=== PATIENT | female | born 1965 | race Caucasian/White ===

== ENCOUNTER 2018-11-29 18:40 | Emergency (ER) | payer MEDICAID, OTHER ==
[~2018-11-29] VITALS: Ht 167.6 cm; Wt 55.0 kg
--- NOTE | 2018-11-29 23:26 | NUR ---
Shmuel Stone, brother [phone] yessenia Monroe [phone] Addendum: 11/30/18 at 0856 by CALLIE PT CODE WORK IS LIZ, CAN GIVE INFORMATION TO YESSENIA FIORE
[2018-11-29 23:34] LABS: BASOPHILS # (AUTO) 0.1 X10'3 (0-0.2); BASOPHILS % (AUTO) 1.3 % (0-1); EOSINOPHILS # (AUTO) 0.3 X10'3 (0-0.9); EOSINOPHILS % (AUTO) 5.1 % (0-6); HEMATOCRIT 40.5 % (35.0-45.0); HEMOGLOBIN 13.3 g/dl (12.0-16.0); LYMPHOCYTES # (AUTO) 1.7 X10'3 (1.1-4.8); LYMPHOCYTES % (AUTO) 33.9 % (21-51); MEAN CORPUSCULAR HEMOGLOBIN 30.1 PG (27.0-31.0); MEAN CORPUSCULAR HGB CONC 32.8 g/dL (33.0-36.5); MEAN CORPUSCULAR VOLUME 91.8 FL (78-98); MEAN PLATELET VOLUME 7.8 FL (7.4-10.4); MONOCYTES # (AUTO) 0.5 X10'3 (0-0.9); MONOCYTES % (AUTO) 8.8 % (2-12); NEUTROPHILS # (AUTO) 2.6 X10'3 (1.8-7.7); NEUTROPHILS % (AUTO) 50.9 % (42-75); PLATELET COUNT 248 X10'3 (140-440); RED BLOOD COUNT 4.41 X10'6 (4.20-5.60); RED CELL DISTRIBUTION WIDTH 12.7 % (11.5-14.5); WHITE BLOOD COUNT 5.2 X10'3 (4.5-11.0)
[2018-11-29 23:41] LABS: ALANINE AMINOTRANSFERASE 20 U/L (12-78); ALBUMIN 3.7 G/DL (3.4-5.0); ALBUMIN/GLOBULIN RATIO 1.3 (1.1-1.5); ALKALINE PHOSPHATASE 73 IU/L (46-116); ANION GAP 7 (8-16); ASPARTATE AMINO TRANSFERASE 12 U/L (10-37); BILIRUBIN,TOTAL 0.3 MG/DL (0.1-1.0); BLOOD UREA NITROGEN 12 MG/DL (7-18); BUN/CREATININE RATIO 13.8 (6.6-38.0); CALCIUM 9.1 MG/DL (8.5-10.1); CHLORIDE 106 MMOL/L (99-107); CREATININE 0.87 MG/DL (0.40-0.90); ETHANOL < 0.010 GM/DL (0.0-0.010); GLUCOSE 110 MG/DL (70-104); POTASSIUM 3.7 MMOL/L (3.5-5.1); SODIUM 143 MMOL/L (135-145); TOTAL PROTEIN 6.6 G/DL (6.4-8.2); eGFR 68 ML/MIN
--- NOTE | 2018-11-29 23:47 | NUR ---
SON WOULD LIKE TO BE CONTACTED FOR [facility] CONSULT
--- NOTE | 2018-11-30 | NUR ---
REPORT CALLED TO [facility] MEDLEY IN SBAR FORMAT
[2018-11-30 00:02] LABS: URINE HCG NEGATIVE (NEG)
--- NOTE | 2018-11-30 00:06 | NUR ---
MOVED OVER FROM MAIN ER, PT COOPERATIVE, AND TUCKED INTO BED FOR THE NIGHT.
[2018-11-30 00:15] LABS: URINE AMPHETAMINE SCREEN NEGATIVE (Neg); URINE BARBITUATE SCREEN NEGATIVE (Neg); URINE BENZODIAZEPINES SCREEN NEGATIVE (Neg); URINE CANNABINOID SCREEN NEGATIVE (Neg); URINE COCAINE SCREEN NEGATIVE (Neg); URINE METHADONE SCREEN NEGATIVE (Neg); URINE OPIATE SCREEN NEGATIVE (Neg); URINE PHENCYCLIDINE SCREEN NEGATIVE (Neg)
--- NOTE | 2018-11-30 06:09 | NUR ---
PT UP AT DESK ASKING TO GO OUTSIDE TO SMOKE. TOLD SEVERAL TIMES THAT SHE COULD NOT AND THAT A NICOTINE PATCH COULD BE ORDERED FOR HER.
--- NOTE | 2018-11-30 07:04 | NUR ---
TELEPSYCH ORDERED BY DR IRBY AND INITIATED.
--- NOTE | 2018-11-30 08:34 | NUR ---
DR CARDOZA FROM [facility] [place] STATUS UPDATE
--- NOTE | 2018-11-30 08:45 | NUR ---
PT SPEAKING WITH TELEPSYCH DOCTOR AT THIS TIME. PT HAS 2 FAMILY MEMBERS AT BEDSIDE.
--- NOTE | 2018-11-30 09:21 | NUR ---
TELEPSYCH COMPLETED WITH DR LEE. RECOMMENDED PLACEMENT FOR PSYCOSIS, GRAVELY DISABLED AND DANGER TO SELF. REPORT TO FOLLOW WITH MEDICATION RECOMMENDATIONS OF TOM MAN AND RC.
[2018-11-30] MEDS ORDERED: nicotine 21mg patch - 24 hr TD ONE (09:35)
[2018-11-30] MEDS ORDERED: LORazepam 2 mg/ml vial IM PRN (09:35)
[2018-11-30] MEDS ORDERED: LORazepam 1 MG tablet PO PRN (09:35)
[2018-11-30] MEDS ORDERED: risperiDONE 2mg tablet PO SCH ×2 (09:45→20:00)
--- NOTE | 2018-11-30 09:45 | NUR ---
MEDS RECOMMENDED BY DR LEE, SOC REVIEWED BY DR IRBY AND ORDERED. PT REQUESTING A NICOTINE PATCH, ORDER OBTAINED FAMILY AT BEDSIDE.
[2018-11-30] MEDS ORDERED: UNABLE TO OBTAIN (10:00)
--- NOTE | 2018-11-30 10:00 | NUR ---
FAMILY HAS LEFT. PT SLEEPING COMFORTABLY. ORDERED MEDICATIONS WILL BE STARTED WHEN PT WAKES UP.
--- NOTE | 2018-11-30 11:26 | NUR ---
PT SLEEPING COMFORTABLY, NO S/S OF DISTRESS NOTED.
[2018-11-30] MEDS: ziprasidone 20mg capsule PO SCH ×2 (12:10→21:31)
[2018-11-30] MEDS: risperiDONE 0.5mg tablet PO SCH ×2 (12:10→21:32)
--- NOTE | 2018-11-30 12:16 | NUR ---
PT IS AWAKE AND GIVEN NEW MEDICATIONS ORDERED.
--- NOTE | 2018-11-30 12:35 | NUR ---
PT MOVED TO OF[facility]
--- NOTE | 2018-11-30 13:07 | NUR ---
PT EVALUATED BY MEGAN DONOVAN. PT FAILED THE DEVALOPMENTAL TESTING, DR IRBY CONSULTED AND UA AND HEAD CT ORDERED.
[2018-11-30 13:56] LABS: CLARITY,URINE CLEAR (Clear); COLOR,URINE STRAW (Yellow); GLUCOSE, URINE NEGATIVE (Neg); KETONES,URINE NEGATIVE (Neg); LEUKOCYTE ESTERASE ,URINE NEGATIVE (Neg); NITRITES, URINE NEGATIVE (Neg); OCCULT BLOOD,URINE TRACE-INTACT (Neg); PROTEIN,URINE NEGATIVE (Neg); UROBILINOGEN,URINE 0.2 E.U/dL (0.2-1.0)
[2018-11-30 14:00] LABS: UA COLLECTION TYPE CLN CATCH MIDSTREAM
[2018-11-30 14:04] LABS: BACTERIA,URINE 2+ /HPF (Neg); SQUAMOUS EPITHELIAL CELL,UR FEW /LPF (FEW)
[2018-11-30 14:05] LABS: RBC,URINE 0-2 /HPF (0-2); WBC,URINE 0-4 /HPF (0-4)
--- NOTE | 2018-11-30 14:05 | NUR ---
URINE SENT TO LAB, PT WENT TO CT WITH RN AND SECURITY EXCORT WITHOUT INCIDENT
--- NOTE | 2018-11-30 15:23 | NUR ---
PT EVALUATED BY [facility]. VENUS PLACED PT ON A 5150 HOLD.
--- NOTE | 2018-11-30 17:07 | NUR ---
PT IS SLEEPING COMFORTABLY. PT'S SON CAME BY, UPDATE GIVEN, REVIEWED LAB AND CT RESULTS WITH SON. SON LEFT, NOT WANTING TO WAKE PT UP
--- NOTE | 2018-11-30 17:38 | NUR ---
URINE LAB RESULTS FAXED TO [facility] OFFICE
--- NOTE | 2018-11-30 18:56 | NUR ---
Patient sitting at edge of bed eating dinner. No distress observed. Continue to monitor.
--- NOTE | 2018-11-30 20:11 | NUR ---
Patient sleeping on right side. No distress observed. continue to monitor.
--- NOTE | 2018-11-30 22:13 | NUR ---
Patient's blood being drawn for TSH, possible admit to [facility]. No distress observed.
--- NOTE | 2018-11-30 23:41 | NUR ---
RN faxed [facility] office and [facility] results of TSH blood work for possible admission to [facility].
[2018-12-01] MEDS ORDERED: ibuprofen tablet 400 MG TABLET PO ONE (05:30)
--- NOTE | 2018-12-01 06:30 | NUR ---
Pt appears to be sleeping; RR WNL's.
[2018-12-01] MEDS: ziprasidone 20mg capsule PO SCH ×2 (07:59→19:11)
[2018-12-01] MEDS: risperiDONE 0.5mg tablet PO SCH ×2 (08:00→19:11)
--- NOTE | 2018-12-01 08:25 | NUR ---
Pt is up eating. She has had a sandwich, chips, juice some eggs and is now asking for more food. Ordered regular diet and waiting for a regular tray to be delivered. Pt is calm, cooperative and following directions. Loose associations and illogical thought process.
--- NOTE | 2018-12-01 10:16 | NUR ---
Pt has been sleeping since after breakfast; RR WNL's.
--- NOTE | 2018-12-01 11:38 | NUR ---
Pt is sleeping; RR WNL's.
--- NOTE | 2018-12-01 12:05 | NUR ---
Patient's son Bryon is here visiting. He is his mother's POA. His phone number is [phone].
--- NOTE | 2018-12-01 13:31 | NUR ---
Pt son's was here visiting this morning. Pt up for meals and then goes back to sleep. RR WNL's.
--- NOTE | 2018-12-01 15:18 | NUR ---
[facility] called for report and will consult with Dr. Campos for admission orders.
--- NOTE | 2018-12-01 16:07 | NUR ---
Pt accepted at [facility] [place] by Dr. Campos. Estimatied PU time for transfer will be 2000 tonight.
--- NOTE | 2018-12-01 17:36 | NUR ---
Pt just had her VS done she is now on her bed quietly waiting for dinner.
[2018-12-01 17:48] VITALS: BP 110/63
[2018-12-01] MEDS ORDERED: nicotine 21mg patch - 24 hr TD SCH (19:05)
== END 2018-12-01 19:51 ==
LOC: ER 18:41
DX: F28 Other psychotic disorder not due to a substance or known physiological condition (principal); R45.851 Suicidal ideations; F31.9 Bipolar disorder, unspecified; F15.90 Other stimulant use, unspecified, uncomplicated; F17.210 Nicotine dependence, cigarettes, uncomplicated
CPT/HCPCS: 36415; 80053; 80305; 80320; 81001; 81025; 82948; 84439; 84443; 84480; 85025; 99285